=== PATIENT | female | born 1980 | race Caucasian/White ===

== ENCOUNTER 2025-08-23 06:14 | Day surgery (SDC) | payer OTHER ==
[2025-08-15 14:47] LABS: URINE APPEARANCE Clear; URINE BILIRRUBIN Negative (NEGATIVE); URINE BLOOD Small; URINE COLOR Yellow; URINE GLUCOSE Negative (NEGATIVE); URINE KETONE Negative (NEGATIVE); URINE LEUKOCYTE Negative; URINE NITRATE Negative; URINE PROTEIN Negative (NEGATIVE); URINE UROBILINOGEN 0.2 E.U./dl
[2025-08-15 14:50] LABS: BASO % 1.0 % (0.1-1.2); EOS # 0.30 (0.04-0.54); EOS % 3.4 % (0.7-7.0); LYMPH # 3.37 (1.18-3.74); LYMPH % 37.8 % (19.3-53.1); MEAN PLATELET VOLUME 10.90 fl (9.4-12.4); MONO # 0.74 (0.24-0.82); MONO % 8.3 % (4.7-12.5); NEUT # 4.39 (1.56-6.13); NEUT % 49.3 % (34.0-71.1); RED CELL DISTRIBUTION WIDTH 12.5 % (11.6-14.4)
[2025-08-15 14:51] LABS: URINE BACTERIA 265.3 uL (0.0-1933); URINE EPITHELIAL CELLS 6.2 uL (0.0-38.8); URINE RBC 19.8 uL (0.0-20.8); URINE WBC 3.2 uL (0.0-23.2)
[2025-08-15 15:05] LABS: INR 1.04
[2025-08-15 15:08] LABS: URINE CAST 0.00 uL (0.0-1.40)
[2025-08-15 15:09] LABS: ALT/SGPT 20.0 U/L (12-78); AST/SGOT 16.0 U/L (15-37); BILIRUBIN TOTAL 0.6 mg/dL (0.3-1.2); BUN CREA RATIO 20.0 (7.0-25.0); CREATININE SERUM 0.41 mg/dL (0.55-1.02); GFR 168.52; GLOBULINA 4.2 G/DL (2.4-3.5); GLUCOSE FASTING 85.0 mg/dL (65-100); OSMOLALITY SERUM 279.0 MOSM/KG (275-295)
[2025-08-15 15:13] VITALS: BP 130/90
[~2025-08-23] VITALS: Ht 154.9 cm; Wt 123.4 kg
[~2025-08-23 06:14] MED LIST: FOLIC ACID0.4 MG; PRENATAL CAPLE1 EACH PO
[2025-08-23] MEDS ORDERED: POVIDONE-IODINE 118 ML BOTT TOP ONE (08:26)
[2025-08-23] MEDS ORDERED: RINGERS SOLUTION,LACTATED 1,000 ML IV SCH (10:00)
[2025-08-23] MEDS ORDERED: KETOROLAC TROMETHAMINE 30 MG VIAL IV ONE (10:00)
[2025-08-23] MEDS ORDERED: ONDANSETRON HCL 2 MG/ML VIAL IV PRN (10:00)
[2025-08-23] MEDS ORDERED: FAMOTIDINE/PF 20 MG/2 ML VIAL IV ONE (10:00)
[2025-08-23] MEDS ORDERED: MORPHINE SULFATE 4 MG/ML VIAL IV PRN (10:00)
[2025-08-23] MEDS ORDERED: FAMOTIDINE/PF 20 MG/2 ML VIAL ONE (13:18)
[2025-08-23] MEDS ORDERED: KETOROLAC TROMETHAMINE 30 MG VIAL ONE (13:18)
== END 2025-08-23 13:55 | disposition home or self-care (01) ==
LOC: CIR.AMB 06:14
PROVIDERS: ATTEND General Practice
DX: N93.8 Other specified abnormal uterine and vaginal bleeding (principal); N88.2 Stricture and stenosis of cervix uteri